=== PATIENT | female | born 1980 | race Caucasian/White ===

== ENCOUNTER → 2017-10-23 18:01 | Outpatient (CLI) | payer OTHER, SELFPAY | PROVIDERS: Family Provider Family Medicine; PCP Family Medicine; Visit Provider Family Medicine | DX: R31.9 Hematuria, unspecified (principal) | CPT/HCPCS: 87086; 87088 ==

== ENCOUNTER → 2017-10-24 15:01 | Outpatient (CLI) | payer OTHER, SELFPAY ==
--- NOTE | 2017-10-24 15:05 | CT_ITS ---
STUDY: CT ABDOMEN AND PELVIS WITHOUT CONTRAST REASON FOR EXAM: Female, 37 years old. RADIATION DOSAGE (If Supplied By Facility): CTDIvol = ( 6.62 ) mGy, DLP = ( 325.84 ) mGycm TECHNIQUE: Transaxial images were obtained from the dome of the diaphragm to the symphysis pubis without oral contrast, and without intravenous contrast. Sagittal and coronal images were reconstructed. Individualized dose optimization techniques were used for this CT. COMPARISON: None. FINDINGS: The lung bases are clear. The liver is normal with no dilated intrahepatic biliary radicles. The gallbladder is normal with no gallstones and no pericholecystic fluid collection or streakiness. The spleen, pancreas and both adrenals are normal. The kidneys are normal with no masses, calculi or hydronephrosis. The stomach is normal. There is no bowel distention, acute appendicitis or diverticulitis. No abnormally constricting large bowel lesions. The abdominal wall is intact. There is no ascites, free intraperitoneal air or any evidence of epiploic appendagitis. The vascular structures in the retroperitoneum are normal The bones and joints seen are normal with no osteolytic or osteoblastic changes There is no retrocrural, retroperitoneal or mesenteric adenopathy. There is no mesenteric mistiness The urinary bladder is normal.. The uterus is normal. There is no inguinal or pelvic adenopathy and there is no inguinal hernia. . CT/Abdomen/Pelvis without Cont IMPRESSION: No acute findings in the abdomen or pelvis. Specifically there is no acute appendicitis or diverticulitis. Electronically Signed: Henrique Quintero, at 7:21 EDT Tel , Service support ,
== END ==
PROVIDERS: Family Provider Family Medicine; PCP Family Medicine; Visit Provider Family Medicine
DX: R31.9 Hematuria, unspecified (principal)
CPT/HCPCS: 74176

== ENCOUNTER → 2017-11-08 15:35 | Outpatient (CLI) | payer OTHER, SELFPAY ==
[2017-11-08 17:18] LABS: Color, Urine Yellow (Yellow); Glucose, Dipstick Normal (Normal); Ketone-Dipstick Negative (Negative); Leukocyte Esterase-Dipstick Negative /ul (Negative); Nitrite-Dipstick Negative (Negative); Occult Blood-Urine Negative /ul (Negative); Protein-Dipstick Negative (Negative); Urine Bilirubin Dipstick Negative (Negative); Urine Clarity Clear (Clear); Urine Urobilinogen Normal (Normal)
[2017-11-08 17:30] LABS: Squamous Epithelial Cells - UA 0-5 SEEN /hpf (5-10)
[2017-11-08 17:32] LABS: Bacteria 1+ /hpf (None Seen); Mucous, Urine 1+ /hpf (<or=2+); Red Blood Cells-Urine 0-5 SEEN /hpf (0-5)
[2017-11-08 17:34] LABS: White Blood Cells 0-5 SEEN /hpf (0-5)
== END ==
LOC: MFPLAB 15:35 → LABSPEC 15:36
PROVIDERS: Family Provider Family Medicine; PCP Family Medicine; Visit Provider Family Medicine
DX: R31.9 Hematuria, unspecified (principal)
CPT/HCPCS: 81001

== ENCOUNTER → 2017-12-06 15:58 | Outpatient (CLI) | payer OTHER, SELFPAY | PROVIDERS: Visit Provider Obstetrics & Gynecology | DX: R82.99 Other abnormal findings in urine (principal) | CPT/HCPCS: 87086; 87088; 87106 ==

== ENCOUNTER → 2018-03-05 08:51 | Outpatient (CLI) | payer OTHER, SELFPAY ==
--- NOTE | 2018-03-05 08:57 | RAD_ITS ---
STUDY: X-RAY - PARANASAL SINUSES REASON FOR EXAM: Female, 38 years old. Allergic rhinitis with sinus pain TECHNIQUE: 3 view(s) of the paranasal sinuses were obtained. COMPARISON: None. FINDINGS: Normal visualized frontal, maxillary, ethmoidal and sphenoid sinuses. Normal visualized facial bones. The soft tissue structures are unremarkable. RAD/Sinuses min 3 Views IMPRESSION: Normal x-rays of the paranasal sinuses. Electronically Signed: Austin Luna DO at 8:21 EDT Tel , Service support ,
== END ==
PROVIDERS: Family Provider Family Medicine; PCP Family Medicine; Visit Provider Family Medicine
DX: J30.9 Allergic rhinitis, unspecified (principal)
CPT/HCPCS: 70220

== ENCOUNTER → 2018-03-19 07:01 | Outpatient (CLI) | payer OTHER, SELFPAY ==
--- NOTE | 2018-03-19 07:03 | CT_ITS ---
STUDY: CT MAXILLOFACIAL SINUSES REASON FOR EXAM: Female, 38 years old. Headache. Sinus infections. RADIATION DOSAGE (If Supplied By Facility): CTDIvol = ( 33.06 ) mGy, DLP = ( 796.66 ) mGycm TECHNIQUE: The patient was scanned in a multi detector CT scanner. High resolution axial imaging was performed without the administration of intravenous contrast material. Sagittal and coronal images were reconstructed. Individualized dose optimization techniques were used for this CT. COMPARISON: Radiographs 03/05/2018. FINDINGS: FRONTAL SINUSES: Normal aeration, without mucosal inflammatory disease. ETHMOIDAL SINUSES: Normal aeration, without mucosal inflammatory disease. MAXILLARY SINUSES: Normal aeration, without mucosal inflammatory disease. SPHENOIDAL SINUSES: Normal aeration, without mucosal inflammatory disease. There is patency of the bilateral maxillary infundibuli with normal uncinate processes, ethmoid bullae, and hiatus semilunaris. Normal bilateral middle turbinates. Normal bilateral inferior turbinates. There is a right sided nasal septal deviation, but without a nasal septal spur. There is patency of the bilateral nasal airways. The visualized osseous structures are normal. The visualized bilateral orbital contents are normal. CT/Sinus/Facial Bone IMPRESSION: Normal CT examination of the maxillofacial sinuses. Electronically Signed: Srikanth Bryan MD at 16:46 EDT , Service support ,
== END ==
PROVIDERS: Family Provider Family Medicine; PCP Family Medicine; Referring Provider Family Medicine; Visit Provider Family Medicine
DX: R51 Headache (principal)
CPT/HCPCS: 70486

== ENCOUNTER → 2019-04-15 14:03 | Outpatient (CLI) | payer OTHER, SELFPAY ==
[2019-04-15 14:04] LABS: Bacteria 0 SEEN /hpf (None Seen); Mucous, Urine 0 SEEN /hpf (<or=2+); Squamous Epithelial Cells - UA 0 SEEN /hpf (5-10)
[2019-04-15 14:19] LABS: Color, Urine Yellow (Yellow); Glucose, Dipstick Normal (Normal); Ketone-Dipstick Negative (Negative); Leukocyte Esterase-Dipstick 500 /ul (Negative); Nitrite-Dipstick Negative (Negative); Occult Blood-Urine 250 /ul (Negative); Protein-Dipstick Negative (Negative); Urine Bilirubin Dipstick Negative (Negative); Urine Clarity Sl. Cloudy (Clear); Urine Urobilinogen Normal (Normal)
[2019-04-15 14:32] LABS: Red Blood Cells-Urine 25-50 SEEN /hpf (0-5); White Blood Cells 25-50 SEEN /hpf (0-5)
== END ==
PROVIDERS: Visit Provider Obstetrics & Gynecology
DX: N39.0 Urinary tract infection, site not specified (principal)
CPT/HCPCS: 81001; 87086

== ENCOUNTER → 2019-05-01 14:34 | Outpatient (CLI) | payer OTHER, SELFPAY ==
[2018-03-03 14:15] VITALS: BMI 17.0
--- NOTE | 2019-05-01 | FLU_PTH ---
PATIENT: DANIEL HENRY LOC: [facility] U#:[id number] AGE/SX: 45/F ROOM: RE05/01/[address]: Dr. Nancy Blackwood MD : 1980 BED: DIS: SPEC #: [id number] RECD: 05/01/19 15:35 STATUS: FLORIN HALEY #: [id number] GERMAN: 05/01/19 00:[address]: Nancy Blackwood DEPT: CYTOLOGY RECD BY: Artur Farmer ENTERED: 05/04/19 08:21 SP TYPE: Fluid OTHR DR: Dr. Constantino Cristina MD Tissues: Urine Procedures: Special Stain Group II Surgery Specimen Level IV Cytospin Fluid HEADER OPERATION: Not noted PRE-OP DIAGNOSIS: Gross hematuria, R31.0 TISSUE SUBMITTED: Urine for cytology DIAGNOSIS CYTOLOGY Urine for cytology (cytospin): Negative for malignant cells. See comment. AM:agapito 05/04/19 COMMENT The specimen primarily contains squamous epithelial cells. Clinical correlation is suggested. Case has been reviewed in consultation with Dr. Alexander who concurs with the above diagnosis. IDC:SJ CYTOLOGY STUDY Slides are reviewed. CYTOLOGY GROSS Received is 60 ml of yellow cloudy fluid labeled with the patient's name and and designated per the requisition as urine. Submitted for cytology preparation. /CC:cc 05/04/19 TC:5 CPT: 48181
[2019-05-01 15:36] LABS: Cytology, Body Fluid / CSF SEE PATHOLOGY REPORT
== END ==
PROVIDERS: Family Provider Family Medicine; PCP Family Medicine; Referring Provider Urology; Visit Provider Urology
DX: R31.0 Gross hematuria (principal)
CPT/HCPCS: 88108; 88305; 88313

== ENCOUNTER → 2019-05-07 07:34 | Outpatient (CLI) | payer OTHER, SELFPAY ==
[2018-03-03 14:15] VITALS: BMI 17.0
--- NOTE | 2019-05-07 07:35 | CT_ITS ---
STUDY: CT ABDOMEN AND PELVIS WITH AND WITHOUT CONTRAST REASON FOR EXAM: Female, 39 years old. Hematuria. RADIATION DOSAGE (If Supplied By Facility): CTDIvol = ( 10.61 ) mGy, DLP = ( 1463.38 ) mGycm TECHNIQUE: Transaxial images were obtained from the dome of the diaphragm to the symphysis pubis without oral contrast. IV Isovue 370 100 was administered. Sagittal and coronal images were reconstructed. Individualized dose optimization techniques were used for this CT. COMPARISON: Comparison is made with prior study dated October 24, 2017. FINDINGS: The visualized lung bases are unremarkable. The visualized portions of the heart are within normal limits. Normal liver. Normal gallbladder and extrahepatic biliary system. Normal spleen. Normal pancreas. Normal bilateral adrenal glands. Normal right kidney. Normal left kidney. Normal visualized stomach. Normal small intestine. Normal colon. The appendix is visualized and appears normal. Normal abdominal aorta. Normal inferior vena cava. Normal retroperitoneum. Normal urinary bladder. Normal abdominal wall. Normal osseous structures. CT/CT Abd/Pelvis W/WO Contrast IMPRESSION: Normal unenhanced and enhanced CT of the abdomen and pelvis. Electronically Signed: Joe Armstrong, at 13:29 EST , Service support ,
== END ==
PROVIDERS: Family Provider Family Medicine; PCP Family Medicine; Referring Provider Urology; Visit Provider Urology
DX: R31.9 Hematuria, unspecified (principal)
CPT/HCPCS: 74178; Q9967

== ENCOUNTER 2019-06-30 09:35 | Day surgery (SDC) | payer OTHER, SELFPAY ==
[2019-06-30 09:54] VITALS: BP 127/99; PULSE 108; RESP 16; TEMP 36.4; O2SAT 99; BMI 26.4
[2019-06-30 09:57] LABS: Internal QC Validated? YES +Cl - CLEAR BKGD
[2019-06-30 09:58] LABS: Pregnancy, Urine Negative Negative
--- NOTE | 2019-06-30 10:07 | OP.PCM_ITS ---
Problem List (1) Gross hematuria Status: Acute (2) Urinary urgency Status: Acute (3) Urinary frequency Status: Acute Report of Operation Date of Procedure: 06/30/19 Pre-Operative Diagnosis: gross hematuria, urinary urgency and frequency Post-Operative Diagnosis: same Surgery/Procedure Performed:: cystoscopy, bilateral selective cytology, hydrodistention Type of Anesthesia:: General Specimen's removed: cytologies from the bladder, right and left renal collecting systems Description of Procedure: The patient is a 39-year-old female who had post hematuria with a negative CT scan and office cystoscopy. She also has urgency and frequency and lower abd ominal cramping. After discussing the risk benefits and alternatives, she agreed to proceed with further evaluation with selective cytologies ureteroscopy and hydrodistention. Informed consent was obtained. Patient was taken to the operating room and placed on the operating room table. Anesthesia monitored the head, neck, airway, IV access and vital signs throughout the case. Once anesthesia was appropriately administered the patient was prepped and draped in usual sterile fashion. A cystourethroscopy was then performed revealing no abnormality of bladder or urethral mucosa. Bilateral u reteral orifices were very small and I had to use a 0.035 Glidewire in order to insert an open ended ureteral catheter in both sides. A clean catheter was used for each ureter, selective cytologies were obtained with sterile saline irrigation. And a sample was also sent from the bladder prior to beginning the case. As the open-ended ureteral catheter was removed a retrograde pyelogram was performed under fluoroscopic visualization. There were no filling defects or abnormalities in either collecting system. Due to the size of the ureteral openings the decision was made to abort ureteroscopy. At this time the bladder was filled to capacity and left to sit for 2 minutes. The capacity was measured at approximately 750 cc. There is no terminal hematuria. There were no glomerulations identified. At this time the bladder was emptied and the case was terminated. The patient was taken to the recovery room in good condition. There were no complications during the procedure. Grafts/Implants Used: none - Complications none - Admit VTE Documentation VTE Present on Admission: Yes VTE Mechan Device Prophylaxis: SCD's VTE Pharm Prophylaxis ordered?: No Reason prophylaxis not ordered:: Treatment Not Indicated
--- NOTE | 2019-06-30 10:09 | PCM.DC.URO ---
Discharge Diet: No Restrictions Discharge Activity: May not drive while taking narcotic pain medications., May Shower May resume sexual activity in: No Restrictions Call your doctor if you observe: Fever of 101 or Higher, Inability to urinate, Inability to have a bowel movement, Calf discomfort, Uncontrolled pain Allergies/Adverse Reactions: Allergies ragweed pollen Allergy (Verified 06/30/19 09:53) Unknown Medications to take at Discharge Norgestimate-Ethinyl Estradiol [Sprintec 28 Day Tablet] 1 ea PO DAILY 06/23/19 Cephalexin [Keflex] 500 mg PO Q12 3 Days #6 cap 06/30/19 Hydrocodone Bitart/Apap 5-325 [Mulberry 5MG-325MG] 1 tab PO Q4H PRN PRN 7 Days #10 tab 06/30/19 Bad tablePrimary Care Physician: Natalio Cristina MD [Primary Care Provider] - Test Results: Test results from this visit will be discussed in further detail at your follow-up appointment, if applicable. Please Follow Up With: Nancy Blackwood MD When: call office for appt to be seen in 1-2 weeks Proposed Discharge Date: 06/30/19
[2019-06-30] MEDS: Lactated Ringers 1,000 ML 100 ML IV (10:15)
[2019-06-30] MEDS: Cefazolin 2 GM in 0.9% Normal Saline 100 ML IV (10:18)
--- NOTE | 2019-06-30 10:38 | FLU_PTH ---
PATIENT: DANIEL HENRY [place] [facility] [place][id number] AGE/SX: 39/F ROOM: RE06/30/[address]: Dr. Nancy Blackwood MD : 1980 BED: DIS: 06/30/2019 SPEC #: [id number] RECD: 06/30/19 11:48 STATUS: FLORIN HALEY #: [id number] GERMAN: 06/30/19 10:[address]: Nancy Blackwood DEPT: CYTOLOGY RECD BY: Artur Farmer ENTERED: 06/30/19 11:58 SP TYPE: Fluid OTHR DR: Dr. Constantino Cristina MD Tissues: A - Urinary bladder, NOS B - Kidney, NOS C - Kidney, NOS Procedures: Special Stain Group II Surgery Specimen Level IV Cytospin Fluid HEADER OPERATION: Cysto, retrograde pyelograms, hydrodistention PRE-OP DIAGNOSIS: Gross hematuria, frequency of micturition, urgency, nocturia TISSUE SUBMITTED: A - Bladder, B - Left kidney, C - Right kidney DIAGNOSIS CYTOLOGY A. Urine from urinary bladder (cytospin and cell block): Negative for malignant cells. B. Urine from left kidney (cytospin and cell block): Reactive urothelial cells. No evidence of malignancy. C. Urine from right kidney (cytospin and cell block): Reactive urothelial cells. No evidence of malignancy. AM:agapito 07/01/19 COMMENT Case has been reviewed in consultation with Dr. Alexander who concurs with the above diagnosis. IDC:SJ CYTOLOGY STUDY Slides are reviewed. CYTOLOGY GROSS A - Received is 40.5 ml of hazy light yellow fluid labeled with the patient's name and and designated per the requisition as bladder. Submitted for cytology preparation including cell block. B - Received is 3 ml of hazy colorless fluid labeled with the patient's name and and designated per the requisition as left kidney. Submitted for cytology preparation including cell block. C - Received is 4 ml of hazy colorless fluid labeled with the patient's name and and designated per the requisition as right kidney. Submitted for cytology preparation including cell block. / agapito 06/30/19 TC:5 CPT: 33109 x3, 11485 x3
[2019-06-30 11:03] VITALS: BP 122/76; BP 127/99; PULSE 93; RESP 16; TEMP 36.5; O2SAT 99
[2019-06-30 11:10] VITALS: BP 114/69; BP 127/99; PULSE 83; RESP 16; O2SAT 99
[2019-06-30 11:15] VITALS: BP 117/76; BP 127/99; PULSE 84; RESP 16; O2SAT 100
[2019-06-30 11:19] VITALS: BP 114/77; BP 127/99; PULSE 81; RESP 16; TEMP 36.4; O2SAT 100
[2019-06-30 11:20] LABS: Cytology, Body Fluid / CSF SEE PATHOLOGY REPORT
[2019-06-30 12:23] VITALS: BP 112/60; BP 127/99; PULSE 77; RESP 16; TEMP 36.6; O2SAT 98
== END 2019-06-30 12:35 | disposition home or self-care (01) ==
LOC: SDC 09:36 → AC 09:36
PROVIDERS: Family Provider Family Medicine; PCP Family Medicine; Referring Provider Urology; Visit Provider Urology
PROC: 0T7B7ZZ Dilation of Bladder, Via Natural or Artificial Opening (ICD-10-PCS; CPT 52005; principal; 2019-06-30 11:15)
DX: R31.0 Gross hematuria (principal); R35.0 Frequency of micturition; R39.15 Urgency of urination; R35.1 Nocturia; M54.5 Low back pain
CPT/HCPCS: 00910; 52005; 76000; 81025; 88108; 88305; 88313; J7120; J2405

== ENCOUNTER → 2020-01-20 16:48 | Outpatient (CLI) | payer OTHER, SELFPAY ==
[2019-08-21 17:04] VITALS: BMI 26.4
[2020-01-25 08:22] LABS: HPV APTIMA, High Risk Negative (Negative)
== END ==
PROVIDERS: PCP Family Medicine; Visit Provider Obstetrics & Gynecology
DX: Z12.4 Encounter for screening for malignant neoplasm of cervix (principal)
CPT/HCPCS: 87624; 88175; G0145

== ENCOUNTER → 2020-01-28 06:31 | Outpatient (CLI) | payer OTHER, SELFPAY ==
[2019-08-21 17:04] VITALS: BMI 26.4
[2020-01-28 08:22] LABS: Follicle Stimulating Hormone 4.2 mIU/mL
== END ==
PROVIDERS: PCP Family Medicine; Referring Provider Obstetrics & Gynecology; Visit Provider Obstetrics & Gynecology
DX: R68.82 Decreased libido (principal); N92.6 Irregular menstruation, unspecified
CPT/HCPCS: 36415; 83001

== ENCOUNTER → 2020-02-10 16:47 | Outpatient (CLI) | payer OTHER, SELFPAY ==
[2019-08-21 17:04] VITALS: BMI 26.4
[2020-02-10 18:11] LABS: Erythrocyte Sedimentation Rate 4 mm/hr (0-20)
[2020-02-10 18:41] LABS: Vitamin B12 1221 pg/mL (211-911); Vitamin D,25 Hydroxy 60.5 ng/mL
[2020-02-10 18:48] LABS: Free T3 3.1 pg/mL (2.18-3.98); T3 Uptake 31 % (30-39); T4 Free Direct 1.09 ng/dL (0.76-1.46); Thyroid Stim Hormone (TSH) 0.65 uIU/mL (0.358-3.74)
== END ==
PROVIDERS: PCP Family Medicine; Referring Provider Family Medicine; Visit Provider Family Medicine
DX: R53.83 Other fatigue (principal); E04.9 Nontoxic goiter, unspecified
CPT/HCPCS: 36415; 82306; 82533; 82607; 84439; 84443; 84479; 84481; 85652

== ENCOUNTER → 2020-02-16 16:00 | Outpatient (CLI) | payer OTHER, SELFPAY ==
[2019-08-21 17:04] VITALS: BMI 26.4
--- NOTE | 2020-02-16 16:03 | US_ITS ---
STUDY: THYROID ULTRASOUND REASON FOR EXAM: Female, 40 years old. Palpable left thyroid nodule. TECHNIQUE: Ultrasound evaluation of the thyroid was performed with real-time and static montero-scale imaging. COMPARISON: None. FINDINGS: RIGHT LOBE: The right lobe of the thyroid gland measures 5.0 x 1.6 x 1.3 cm. There is a homogeneous echotexture. There are no demonstrated solid, cystic or complex lesions. Normal vascularity on DOPPLER imaging. LEFT LOBE: The left lobe of the thyroid gland measures 5.2 x 1.4 x 0.9 cm. There is a homogeneous echotexture. There are no demonstrated solid, cystic or complex lesions. Normal vascularity on DOPPLER imaging. ISTHMUS: The isthmus measures 0.2 cm. The regional lymph nodes are normal. Imaging over the right and left neck demonstrate no evidence of mass or lymphadenopathy. US/Thyroid IMPRESSION: Normal ultrasound examination of the thyroid. Electronically Signed: Mitch Post DO at 18:10 EDT Tel [phone], Service support ,
== END ==
PROVIDERS: PCP Family Medicine; Referring Provider Family Medicine; Visit Provider Family Medicine
DX: E04.9 Nontoxic goiter, unspecified (principal)
CPT/HCPCS: 76536

== ENCOUNTER → 2024-03-11 | Outpatient (CLI) | payer OTHER, SELFPAY ==
--- NOTE | 2024-03-11 14:10 | BI_ITS ---
MAMMOGRAPHY - BILATERAL DIAGNOSTIC REASON FOR EXAM: Female, 44 years old. One year history of right breast lump. PERTINENT HISTORY: Non-contributory. TECHNIQUE: Digital bilateral breast adeel (3D mammographic acquisition) in the CC and MLO projections. 2-D mediolateral oblique (MLO) and craniocaudad (CC) views of both breasts were obtained. CAD: Full Field Digital Mammography with Computer Added Detection was performed. COMPARISON: None. Baseline examination. FINDINGS: Breast Composition: The breasts are heterogeneously dense, which may obscure small masses. There are no dominant masses or suspicious calcifications. No other significant abnormalities are identified. BI/DIAG MAMM W/CAD, BILAT IMPRESSION: Negative diagnostic mammogram. Yearly followup mammogram recommended. (A) ASSESSMENT CATEGORY: BIRADS Category 2: Benign. A letter regarding these results will be sent to the patient by the facility within 30 days. Approximately 10% of breast cancers are not detected by mammography. A normal mammogram should not delay biopsy of a clinically suspicious abnormality. Electronically Signed: Joe Armstrong MD at 8:09 EDT ,
--- NOTE | 2024-03-11 14:10 | US_ITS ---
STUDY: ULTRASOUND BREAST - RIGHT REASON FOR EXAM: Female, 44 years old. Palpable lump in the right breast. TECHNIQUE: Axial and longitudinal images of the RIGHT breast were performed with a high resolution ultrasound transducer. # OF IMAGES: 52 COMPARISON: Comparison made with prior mammogram done earlier today. FINDINGS: RIGHT Breast: The lateral half of the right breast was examined with ultrasound. There is heterogeneous fibroglandular tissue. No sonographic abnormality is seen. US/Breast Limited Unilateral IMPRESSION: No sonographic abnormality is seen. ASSESSMENT CATEGORY: BIRADS Category 1: Negative. A letter regarding these results will be sent to the patient by the facility within 30 days. Electronically Signed: Joe Armstrong MD at 8:39 EDT ,
== END | disposition home or self-care (01) ==
LOC: OPBI 14:10
PROVIDERS: PCP Internal Medicine; Referring Provider Nurse Practitioner Family; Visit Provider Nurse Practitioner Family
DX: N63.10 Unspecified lump in the right breast, unspecified quadrant (principal)
CPT/HCPCS: 76642; 77062; 77066; G0279

== ENCOUNTER → 2025-03-11 | Outpatient (CLI) | payer OTHER, SELFPAY ==
[2025-03-17 15:08] LABS: HPV APTIMA, High Risk Negative (Negative)
== END | disposition home or self-care (01) ==
LOC: LABSPEC 12:13
PROVIDERS: PCP Nurse Practitioner Family; Referring Provider Advanced Practice Midwife; Visit Provider Advanced Practice Midwife
DX: R91.1 Solitary pulmonary nodule (principal)
CPT/HCPCS: 87624; 88175; G0145

== ENCOUNTER → 2025-03-31 | Outpatient (CLI) | payer OTHER, SELFPAY ==
--- NOTE | 2025-03-31 16:15 | BI_ITS ---
EXAM: SCRN MAMM (CAD)W/MICHELLE BILAT DATE: 03/31/2025 CLINICAL HISTORY: F, Age 45 y/o , SCREENING No family history. TECHNIQUE: Procedure Code: [id number] Modality: MG Procedure: SCRN MAMM (CAD)W/MICHELLE BILAT COMPARISON: Prior exam(s) dated March 11, 2024.. FINDINGS: TISSUE DENSITY: The breasts are heterogeneously dense, which may obscure small masses. Bilateral Breast Mammographic Findings: No significant masses, calcifications or other abnormalities are identified. No suspicious masses, areas of developing architectural distortion, or suspicious calcifications. There has been no significant interval change. BI/SCRN MAMM (CAD)W/MICHELLE BILAT IMPRESSION: Stable bilateral screening mammogram. OVERALL FINAL ASSESSMENT BI-RADS 1: NEGATIVE. RECOMMENDATION: Routine annual follow-up in 1 Year Additional Recommendation none A letter with findings and recommendations will be mailed to the patient. Reading Location: [place] [id number]
== END | disposition home or self-care (01) ==
LOC: OPBI 16:08
PROVIDERS: PCP Nurse Practitioner Family; Referring Provider Advanced Practice Midwife; Visit Provider Advanced Practice Midwife
DX: Z12.31 Encounter for screening mammogram for malignant neoplasm of breast (principal)
CPT/HCPCS: 77063; 77067